=== PATIENT | female | born 1975 | race Caucasian/White ===

== ENCOUNTER 2020-06-13 09:32 | Inpatient (IN) ==
[2020-06-13] MEDS ORDERED: NS 0.9% 1000 ml BAG 2,000 ML IV ONE (09:52)
[2020-06-13 10:19] LABS: ABS Eosinophils 0.1 10^3/ul (0-0.6); ABS Lymphocytes 1.8 10^3/ul (1.0-4.8); ABS Monocytes 0.7 10^3/ul (0-0.8); ABS Neutrophils 9.9 10^3/ul (1.5-7.7); Eosinophil % 1.1 %; Hematocrit 41 % (35-47); Lymphocyte % 14.1 %; Mean Corpuscular HGB Conc 34 g/dL (31-36); Mean Corpuscular Hemoglobin 30 pg (27-31); Mean Corpuscular Volume 87 fL (80-97); Mean Platelet Volume 7.8 fL (7.4-10.4); Platelet Count 375 10^3/uL (150-450); Red Blood Count 4.71 10^6 /uL (3.70-4.87); Red Cell Distribution Width 14 % (10-15); White Blood Count 12.5 10^3/uL (3.5-10.8)
[2020-06-13 10:38] LABS: ALT 15 U/L (7-52); AST 11 U/L (13-39); Albumin 4.7 g/dL (3.2-5.2); Albumin/Globulin Ratio 1.3 (1-3); Alkaline Phosphatase 66 U/L (34-104); Anion Gap 20 mmol/L (2-11); BUN/Creatinine Ratio 23.1 (8-20); Blood Urea Nitrogen 18 mg/dL (6-24); C Reactive Protein 10.49 mg/L (<8.01); CO2 Carbon Dioxide 16 mmol/L (22-32); Calcium 8.8 mg/dL (8.6-10.3); Chloride 97 mmol/L (101-111); Cholesterol 250 mg/dL; EGFR African American 97.1 (>60); EGFR Non-African American 80.2 (>60); Globulin 3.5 g/dL (2-4); Glucose 281 mg/dL (70-100); HDL Cholesterol 43.3 mg/dL; LDL Cholesterol 153 mg/dL; Magnesium 1.9 mg/dL (1.9-2.7); Potassium 3.7 mmol/L (3.5-5.0); Sodium 133 mmol/L (135-145); Total Protein 8.2 g/dL (6.4-8.9); Triglycerides 271 mg/dL
[2020-06-13 10:44] LABS: HCG Pregnancy < 0.60 mIU/mL
[2020-06-13] MEDS ORDERED: Insulin Infusion 100unit/100mL 100 UNIT/100 ML BAG IV ONE (10:45)
[2020-06-13 11:03] LABS: TSH Ultra Thyroid Stim Horm 0.05 mcIU/mL (0.34-5.60)
[2020-06-13 11:05] LABS: Free T4 0.99 ng/dL (0.61-1.12)
[2020-06-13 21:05] LABS: BUN/Creatinine Ratio 25.4 (8-20); Calcium 8.3 mg/dL (8.6-10.3); EGFR African American 124.2 (>60); EGFR Non-African American 102.7 (>60); Potassium 3.8 mmol/L (3.5-5.0)
[2020-06-14 04:34] LABS: Hematocrit 34 % (35-47); Hemoglobin 12.1 g/dL (12.0-16.0); Mean Corpuscular HGB Conc 35 g/dL (31-36); Mean Corpuscular Hemoglobin 31 pg (27-31); Mean Corpuscular Volume 87 fL (80-97); Mean Platelet Volume 7.8 fL (7.4-10.4); Platelet Count 300 10^3/uL (150-450); Red Blood Count 3.92 10^6 /uL (3.70-4.87); Red Cell Distribution Width 14 % (10-15); White Blood Count 10.8 10^3/uL (3.5-10.8)
[2020-06-14 04:51] LABS: Albumin 3.2 g/dL (3.2-5.2); Albumin/Globulin Ratio 1.2 (1-3); BUN/Creatinine Ratio 29.3 (8-20); EGFR African American 136.6 (>60); EGFR Non-African American 112.9 (>60); Globulin 2.6 g/dL (2-4); Potassium 4.3 mmol/L (3.5-5.0); Total Bilirubin 0.4 mg/dL (0.2-1.0); Total Protein 5.8 g/dL (6.4-8.9)
[2020-06-14] MEDS ORDERED: Insulin GLARGINE 100 un/ml 10 ml VIAL SUBCUT ONE (11:02)
[2020-06-14 15:53] VITALS: BP 118/80
[2020-06-26 14:18] LABS: Anti GAD 65 Antibody 4.65 nmol/L (<= 0.02); Islet Antigen 2 Antibody 0.11 nmol/L (<=0.02)
== END 2020-06-14 15:45 | disposition home or self-care (01) | DRG 420 ==
LOC: ED 09:32 → ICU 11:56
PROVIDERS: ADMIT Internal Medicine Critical Care Medicine; ATTEND Internal Medicine Critical Care Medicine

== ENCOUNTER 2022-11-12 21:54 | Inpatient (IN) ==
[2022-11-12] MEDS ORDERED: Droperidol 5 MG/2 ML 2 ML VIAL IV ONE (23:17)
[2022-11-12] MEDS ORDERED: NS 0.9% 1000 ml BAG 2,000 ML IV ONE (23:17)
[2022-11-12 23:59] LABS: ABS Lymphocytes 0.8 10^3/ul (1.0-4.8); ABS Monocytes 0.9 10^3/ul (0-0.8); ABS Neutrophils 16.4 10^3/ul (1.5-7.7); Eosinophil % 0.1 %; Hematocrit 31 % (35-47); Hemoglobin 10.2 g/dL (12.0-16.0); Lymphocyte % 4.3 %; Mean Corpuscular HGB Conc 33 g/dL (31-36); Mean Corpuscular Hemoglobin 28 pg (27-31); Mean Corpuscular Volume 85 fL (80-97); Mean Platelet Volume 6.7 fL (7.4-10.4); Platelet Count 415 10^3/uL (150-450); Red Blood Count 3.65 10^6 /uL (3.70-4.87); Red Cell Distribution Width 17 % (10-15); White Blood Count 18.1 10^3/uL (3.5-10.8)
[2022-11-13 00:32] LABS: ALT 15 U/L (7-52); AST 15 U/L (13-39); Albumin 3.5 g/dL (3.2-5.2); Albumin/Globulin Ratio 1.1 (1-3); Alkaline Phosphatase 77 U/L (35-149); Anion Gap 5 mmol/L (2-11); Blood Urea Nitrogen 11 mg/dL (6-24); C Reactive Protein 186.99 mg/L (<8.01); CO2 Carbon Dioxide 30 mmol/L (22-32); Calcium 8.4 mg/dL (8.6-10.3); Chloride 101 mmol/L (101-111); Creatinine, Serum 0.67 mg/dL (0.51-0.95); Globulin 3.1 g/dL (2-4); Glucose 123 mg/dL (70-100); Lipase < 10 U/L (11.0-82.0); Potassium 3.9 mmol/L (3.5-5.0); Sodium 136 mmol/L (135-145); Total Protein 6.6 g/dL (6.4-8.9); eGFR CKD-EPI 109.1 (>60)
[2022-11-13] MEDS ORDERED: Iodixanol (CONTRAST) 320 MG/ML 100 ML SDV IV ONE (00:36)
[2022-11-13 00:38] LABS: HCG Pregnancy < 0.60 mIU/mL
[2022-11-13 02:02] LABS: Urine Appearance Clear; Urine Bilirubin Negative (Negative); Urine Blood 1+ (Negative); Urine Color Yellow; Urine Glucose 1+(50 mg/dL) (Negative); Urine Ketones 2+ (Negative); Urine Nitrite Negative (Negative); Urine Protein 1+(30 mg/dL) (Negative); Urine Specific Gravity 1.031 (1.002-1.030); Urine Urobilinogen Negative (Negative)
[2022-11-13 02:06] LABS: Urine Bacteria Absent (Absent); Urine Red Blood Cell 1+(3-5/hpf) (Absent); Urine White Blood Cell Absent (Absent)
[2022-11-13] MEDS ORDERED: Piperacillin/Tazobac ADVAN 3.375 GM in NS 0.9% 100 ml BAG 100 ML IV ONE (02:13)
[2022-11-13] MEDS ORDERED: Zosyn per Pharmacy NOTE FOLLOW UP SCH (04:00)
[2022-11-13] MEDS: Lactated Ringers 1000 ml BAG 1,000 ML IV SCH ×2 (04:46→21:20)
[2022-11-13 06:09] LABS: ABS Lymphocytes 1.1 10^3/ul (1.0-4.8); ABS Monocytes 0.9 10^3/ul (0-0.8); ABS Neutrophils 13.1 10^3/ul (1.5-7.7); Eosinophil % 0.2 %; Hematocrit 27 % (35-47); Hemoglobin 9.2 g/dL (12.0-16.0); Mean Corpuscular HGB Conc 34 g/dL (31-36); Mean Corpuscular Hemoglobin 29 pg (27-31); Mean Corpuscular Volume 85 fL (80-97); Mean Platelet Volume 6.8 fL (7.4-10.4); Platelet Count 331 10^3/uL (150-450); Red Blood Count 3.22 10^6 /uL (3.70-4.87); Red Cell Distribution Width 16 % (10-15); White Blood Count 15.1 10^3/uL (3.5-10.8)
[2022-11-13 06:24] LABS: INR 1.33 (0.88-1.18)
[2022-11-13] MEDS: ZOSYN 3.375 GM Q8H per EXTENDED INFUSION IV SCH ×4 (06:58→20:26)
[2022-11-13 07:05] LABS: Calcium 7.2 mg/dL (8.6-10.3); Creatinine, Serum 0.53 mg/dL (0.51-0.95); Magnesium 1.6 mg/dL (1.9-2.7); Potassium 3.6 mmol/L (3.5-5.0); eGFR CKD-EPI 115.4 (>60)
[2022-11-13] MEDS ORDERED: Magnesium Sulfate IV 3 GM in NS 0.9% 100 ml BAG 100 ML IVPB ONE (07:47)
[2022-11-13] MEDS ORDERED: Potassium Chlor 20 meq TAB.ER PO ONE (07:47)
[2022-11-13] MEDS ORDERED: Dextrose 50% Syringe 50 ml 25 GM/50 ML SYRINGE IV PUSH PRN (13:03)
[2022-11-13] MEDS: Ondansetron 4 mg VIAL 2 MG/ML 2 ml VIAL IV PRN (19:53)
[2022-11-14 05:40] LABS: Hematocrit 28 % (35-47); Hemoglobin 9.3 g/dL (12.0-16.0); Mean Corpuscular HGB Conc 33 g/dL (31-36); Mean Corpuscular Hemoglobin 28 pg (27-31); Mean Corpuscular Volume 85 fL (80-97); Platelet Count 375 10^3/uL (150-450); Red Blood Count 3.32 10^6 /uL (3.70-4.87); Red Cell Distribution Width 16 % (10-15)
[2022-11-14] MEDS: ZOSYN 3.375 GM Q8H per EXTENDED INFUSION IV SCH ×3 (06:01→21:49)
[2022-11-14 06:06] LABS: ABS Eosinophils 0.1 10^3/ul (0-0.6); ABS Lymphocytes 1.3 10^3/ul (1.0-4.8); ABS Monocytes 1.3 10^3/ul (0-0.8); ABS Neutrophils 14.3 10^3/ul (1.5-7.7); Eosinophil % 0.8 %; Lymphocyte % 7.4 %
[2022-11-14 06:24] LABS: Calcium 7.7 mg/dL (8.6-10.3); Creatinine, Serum 0.59 mg/dL (0.51-0.95); Magnesium 1.9 mg/dL (1.9-2.7); Potassium 4.1 mmol/L (3.5-5.0); eGFR CKD-EPI 112.5 (>60)
[2022-11-14] MEDS ORDERED: Magnesium Sulfate IV 1GM/100ML 1 GM/100 ML BAG IV ONE (07:02)
[2022-11-14] MEDS: Morphine 2 MG/ML SYRINGE IV PRN (17:53)
[2022-11-15] MEDS: ZOSYN 3.375 GM Q8H per EXTENDED INFUSION IV SCH ×3 (05:49→21:52)
[2022-11-15 07:25] LABS: Hematocrit 28 % (35-47); Hemoglobin 9.1 g/dL (12.0-16.0); Mean Corpuscular HGB Conc 32 g/dL (31-36); Mean Corpuscular Hemoglobin 28 pg (27-31); Mean Corpuscular Volume 87 fL (80-97); Mean Platelet Volume 6.8 fL (7.4-10.4); Platelet Count 371 10^3/uL (150-450); Red Blood Count 3.25 10^6 /uL (3.70-4.87); Red Cell Distribution Width 16 % (10-15); White Blood Count 15.5 10^3/uL (3.5-10.8)
[2022-11-15 07:43] LABS: Calcium 7.6 mg/dL (8.6-10.3); Creatinine, Serum 0.6 mg/dL (0.51-0.95); Magnesium 1.8 mg/dL (1.9-2.7); Potassium 3.6 mmol/L (3.5-5.0)
[2022-11-15 08:14] LABS: C Reactive Protein 241.03 mg/L (<8.01)
[2022-11-15] MEDS: Enoxaparin 40 MG/0.4 ML SYR SUBCUT SCH (12:00)
[2022-11-15] MEDS: NS 0.9% 1000 ml BAG 1,000 ML IV SCH ×2 (12:01→20:11)
[2022-11-15] MEDS: Morphine 2 MG/ML SYRINGE IV PRN ×2 (15:24→21:06)
[2022-11-15] MEDS: Ondansetron 4 mg VIAL 2 MG/ML 2 ml VIAL IV PRN ×2 (15:24→19:42)
[2022-11-15] MEDS ORDERED: Iodixanol (CONTRAST) 320 MG/ML 100 ML SDV IV ONE (17:32)
[2022-11-15] MEDS ORDERED: Gentamicin ADULT per pharmacy 1 NOTE MISC FOLLOW UP PRN (22:30)
[2022-11-15] MEDS ORDERED: GENTAMICIN ADULT IVPB ONE (23:30)
[2022-11-15] MEDS ORDERED: NS 0.9% IVPB ONE (23:30)
[2022-11-15] MEDS: Ampicillin ADVAN 2 GM in NS 0.9% 100 ml BAG 100 ML IVPB SCH (23:31)
[2022-11-16] MEDS: Clindamycin 900 MG/D5W BAG 900 MG/50 ML BAG IVPB SCH ×2 (00:12→08:26)
[2022-11-16] MEDS: Morphine 2 MG/ML SYRINGE IV PRN (01:06)
[2022-11-16] MEDS: Ampicillin ADVAN 2 GM in NS 0.9% 100 ml BAG 100 ML IVPB SCH ×3 (05:00→21:28)
[2022-11-16 06:54] LABS: Hematocrit 26 % (35-47); Hemoglobin 8.9 g/dL (12.0-16.0); Mean Corpuscular HGB Conc 34 g/dL (31-36); Mean Corpuscular Hemoglobin 29 pg (27-31); Mean Corpuscular Volume 85 fL (80-97); Mean Platelet Volume 6.9 fL (7.4-10.4); Platelet Count 378 10^3/uL (150-450); Red Cell Distribution Width 16 % (10-15); White Blood Count 12.4 10^3/uL (3.5-10.8)
[2022-11-16 07:03] LABS: INR 1.29 (0.88-1.18)
[2022-11-16 07:04] LABS: Calcium 7.2 mg/dL (8.6-10.3); Potassium 3.5 mmol/L (3.5-5.0)
[2022-11-16 07:09] LABS: Creatinine, Serum 0.52 mg/dL (0.51-0.95)
[2022-11-16] MEDS ORDERED: Potassium Chlor 20 meq TAB.ER PO ONE (07:28)
[2022-11-16] MEDS ORDERED: NS 0.9% IVPB SCH ×2 (07:30→22:00)
[2022-11-16] MEDS ORDERED: GENTAMICIN ADULT IVPB SCH ×2 (07:30→22:00)
[2022-11-16 08:28] LABS: Magnesium 1.8 mg/dL (1.9-2.7)
[2022-11-16] MEDS: NS 0.9% 1000 ml BAG 1,000 ML IV SCH (08:29)
[2022-11-16 08:44] LABS: ABS Eosinophils 0.4 10^3/ul (0-0.6); ABS Lymphocytes 1.4 10^3/ul (1.0-4.8); ABS Monocytes 0.9 10^3/ul (0-0.8); ABS Neutrophils 9.7 10^3/ul (1.5-7.7); Eosinophil % 2.9 %; RBC Morphology Normal (Normal)
[2022-11-16] MEDS: NS 0.9% IVPB SCH (10:07)
[2022-11-16] MEDS: GENTAMICIN ADULT IVPB SCH (10:07)
[2022-11-16] MEDS: Enoxaparin 40 MG/0.4 ML SYR SUBCUT SCH (12:07)
[2022-11-16] MEDS ORDERED: Acetaminophen IV 1 GM/100ML 1,000 MG/100 ML BAG IV ONE (12:13)
[2022-11-16] MEDS ORDERED: Ondansetron 4 mg VIAL 2 MG/ML 2 ml VIAL ONE (12:13)
[2022-11-16] MEDS ORDERED: HYDROmorphone 0.5 MG/0.5 ML SYRINGE ONE (12:13)
[2022-11-16] MEDS ORDERED: Metoclopramide 5 MG/ML VIAL (10 mg) ONE (12:13)
[2022-11-16] MEDS ORDERED: fentaNYL 250 mcg/5 ml 50 MCG/ML 5 ml VIAL (250 MCG) ONE (12:13)
[2022-11-16] MEDS ORDERED: Rocuronium 50 mg VIAL 10 mg/ml 5 ml VIAL (50 mg) ONE (12:13)
[2022-11-16] MEDS ORDERED: Propofol 10 MG/ML 20 ML BTL ONE (12:13)
[2022-11-16] MEDS ORDERED: Succinylcholine 200 mg VIAL 20 mg/ml 10 ml VIAL (200 mg) ONE (12:14)
[2022-11-16] MEDS ORDERED: HYDROmorphone 1 MG/1 ML SYRINGE IV PRN (13:14)
[2022-11-16] MEDS ORDERED: Prochlorperazine 5 mg/ml 2 ml VIAL (10 mg) IV PRN (13:14)
[2022-11-16] MEDS ORDERED: Naloxone 0.4 mg VIAL 0.4 mg/ml 1 ml VIAL IV PRN (13:14)
[2022-11-16] MEDS ORDERED: Sugammadex 500 MG/5 ML 5 ml VIAL IV PUSH ONE (15:23)
[2022-11-16] MEDS ORDERED: fentaNYL 100 mcg/2 ml 50 MCG/ML VIAL ONE (16:18)
[2022-11-16] MEDS: fentaNYL 100 mcg/2 ml 50 MCG/ML VIAL IV PRN ×2 (16:19→16:36)
[2022-11-16] MEDS ORDERED: Prochlorperazine 5 mg/ml 2 ml VIAL (10 mg) ONE (16:27)
[2022-11-16] MEDS ORDERED: Gentamicin PEAK LEVEL FOLLOW UP ONE (18:00)
[2022-11-16 20:28] LABS: Hematocrit 27 % (35-47); Hemoglobin 8.4 g/dL (12.0-16.0); Mean Corpuscular HGB Conc 31 g/dL (31-36); Mean Corpuscular Hemoglobin 27 pg (27-31); Mean Corpuscular Volume 86 fL (80-97); Mean Platelet Volume 7.1 fL (7.4-10.4); Platelet Count 416 10^3/uL (150-450); Red Blood Count 3.16 10^6 /uL (3.70-4.87); Red Cell Distribution Width 17 % (10-15); White Blood Count 20.4 10^3/uL (3.5-10.8)
[2022-11-16 20:34] LABS: ABS Lymphocytes 0.6 10^3/ul (1.0-4.8); ABS Monocytes 0.9 10^3/ul (0-0.8); ABS Neutrophils 18.8 10^3/ul (1.5-7.7); Eosinophil % 0.1 %; Nucleated Red Blood Cells % 0.1
[2022-11-16] MEDS ORDERED: NS 0.9% 500 ml BAG 500 ML IV ONE (20:41)
[2022-11-16 21:10] LABS: Calcium 7.3 mg/dL (8.6-10.3); Creatinine, Serum 0.57 mg/dL (0.51-0.95); eGFR CKD-EPI 113.4 (>60)
[2022-11-17] MEDS: Clindamycin 900 MG/D5W BAG 900 MG/50 ML BAG IVPB SCH ×4 (01:14→13:46)
[2022-11-17] MEDS: GENTAMICIN ADULT IVPB SCH ×3 (02:46→12:11)
[2022-11-17] MEDS: NS 0.9% IVPB SCH ×3 (02:46→12:11)
[2022-11-17] MEDS: Ampicillin ADVAN 2 GM in NS 0.9% 100 ml BAG 100 ML IVPB SCH ×5 (02:46→20:50)
[2022-11-17 05:57] LABS: Hematocrit 29 % (35-47); Hemoglobin 9.3 g/dL (12.0-16.0); Mean Corpuscular HGB Conc 32 g/dL (31-36); Mean Corpuscular Hemoglobin 28 pg (27-31); Mean Corpuscular Volume 87 fL (80-97); Platelet Count 405 10^3/uL (150-450); Red Blood Count 3.38 10^6 /uL (3.70-4.87); Red Cell Distribution Width 17 % (10-15); White Blood Count 17.1 10^3/uL (3.5-10.8)
[2022-11-17 06:15] LABS: Creatinine, Serum 0.55 mg/dL (0.51-0.95); Magnesium 1.8 mg/dL (1.9-2.7); Potassium 4.1 mmol/L (3.5-5.0); eGFR CKD-EPI 114.4 (>60)
[2022-11-17 06:26] LABS: ABS Lymphocytes 1.2 10^3/ul (1.0-4.8); ABS Monocytes 1.1 10^3/ul (0-0.8); ABS Neutrophils 14.8 10^3/ul (1.5-7.7); Eosinophil % 0.2 %; Lymphocyte % 6.9 %
[2022-11-17] MEDS ORDERED: Magnesium Sulfate 2 gm BAG 2 GM/50 ML BAG IVPB ONE (07:12)
[2022-11-17 07:56] LABS: C Reactive Protein 171.31 mg/L (<8.01)
[2022-11-17 12:03] LABS: Gentamicin Trough 1.5 mcg/mL (0-2.0)
[2022-11-17] MEDS ORDERED: Gentamicin PEAK LEVEL FOLLOW UP ONE ×2 (12:30→20:30)
[2022-11-17 12:52] LABS: Creatinine, Serum 0.59 mg/dL (0.51-0.95); eGFR CKD-EPI 112.5 (>60)
[2022-11-17] MEDS ORDERED: Gentamicin ADULT 80 MG in NS 0.9% 100 ml BAG 100 ML IVPB SCH (21:00)
[2022-11-18] MEDS: Clindamycin 900 MG/D5W BAG 900 MG/50 ML BAG IVPB SCH ×2 (00:12→06:24)
[2022-11-18] MEDS: Ampicillin ADVAN 2 GM in NS 0.9% 100 ml BAG 100 ML IVPB SCH ×2 (02:44→09:14)
[2022-11-18 05:39] LABS: Hematocrit 28 % (35-47); Hemoglobin 9.2 g/dL (12.0-16.0); Mean Corpuscular HGB Conc 33 g/dL (31-36); Mean Corpuscular Hemoglobin 28 pg (27-31); Mean Corpuscular Volume 86 fL (80-97); Mean Platelet Volume 6.8 fL (7.4-10.4); Platelet Count 446 10^3/uL (150-450); Red Blood Count 3.27 10^6 /uL (3.70-4.87); Red Cell Distribution Width 17 % (10-15); White Blood Count 12.9 10^3/uL (3.5-10.8)
[2022-11-18] MEDS ORDERED: Gentamicin ADULT per pharmacy 1 NOTE MISC FOLLOW UP PRN (06:00)
[2022-11-18 06:02] LABS: ABS Eosinophils 0.4 10^3/ul (0-0.6); ABS Lymphocytes 1.4 10^3/ul (1.0-4.8); ABS Neutrophils 9.9 10^3/ul (1.5-7.7); Eosinophil % 3.5 %
[2022-11-18 06:10] LABS: Anion Gap 7 mmol/L (2-11); Blood Urea Nitrogen 5 mg/dL (6-24); C Reactive Protein 157.11 mg/L (<8.01); CO2 Carbon Dioxide 30 mmol/L (22-32); Calcium 7.1 mg/dL (8.6-10.3); Chloride 101 mmol/L (101-111); Creatinine, Serum 0.57 mg/dL (0.51-0.95); Glucose 126 mg/dL (70-100); Potassium 3.8 mmol/L (3.5-5.0); Sodium 138 mmol/L (135-145); eGFR CKD-EPI 113.4 (>60)
[2022-11-18] MEDS: Polyethylene Glycol 3350 17 GM PACKET PO SCH (09:15)
[2022-11-18 09:40] LABS: Creatinine, Serum 0.54 mg/dL (0.51-0.95); eGFR CKD-EPI 114.9 (>60)
[2022-11-18 10:54] LABS: Total Iron Binding Capacity 129 mcg/dL (250-450); Transferrin 92 mg/dL (203-362)
[2022-11-18 11:00] LABS: % Iron Saturation 16 % (15-55); Iron < 20 ug/dL (50-212); Unsaturated Iron Binding 109 ug/dL
[2022-11-18] MEDS ORDERED: fentaNYL 100 mcg/2 ml 50 MCG/ML VIAL IV SLOW PU PRN ×2 (11:43→12:53)
[2022-11-18] MEDS ORDERED: fentaNYL 100 mcg/2 ml 50 MCG/ML VIAL ONE (11:51)
[2022-11-18] MEDS: cefTRIAXone 1 gm/50 mL D5W 1 GM/50 ML BAG IV SCH (12:00)
[2022-11-18] MEDS: DOXYcycline 100 MG in NS 0.9% 250 ml 250 ML IVPB SCH ×2 (12:34→21:05)
[2022-11-18] MEDS: metroNIDAZOLE IV 500 MG/100ML 500 MG/100 ML BAG IVPB SCH ×2 (13:21→22:08)
[2022-11-18] MEDS: Enoxaparin 40 MG/0.4 ML SYR SUBCUT SCH (13:22)
[2022-11-18] MEDS ORDERED: Gentamicin ADULT 80 MG in NS 0.9% 100 ml BAG 100 ML IVPB SCH (14:00)
[2022-11-18] MEDS ORDERED: Gentamicin PEAK LEVEL FOLLOW UP ONE (15:00)
[2022-11-19 05:59] LABS: Hematocrit 26 % (35-47); Hemoglobin 8.6 g/dL (12.0-16.0); Mean Corpuscular HGB Conc 33 g/dL (31-36); Mean Corpuscular Hemoglobin 28 pg (27-31); Mean Corpuscular Volume 86 fL (80-97); Mean Platelet Volume 6.9 fL (7.4-10.4); Platelet Count 473 10^3/uL (150-450); Red Blood Count 3.05 10^6 /uL (3.70-4.87); Red Cell Distribution Width 18 % (10-15); White Blood Count 11.2 10^3/uL (3.5-10.8)
[2022-11-19 06:00] LABS: ABS Eosinophils 0.5 10^3/ul (0-0.6); ABS Lymphocytes 1.5 10^3/ul (1.0-4.8); ABS Monocytes 0.9 10^3/ul (0-0.8); ABS Neutrophils 8.2 10^3/ul (1.5-7.7); Eosinophil % 4.7 %; Lymphocyte % 13.6 %
[2022-11-19] MEDS: cefTRIAXone 1 gm/50 mL D5W 1 GM/50 ML BAG IV SCH (07:57)
[2022-11-19] MEDS: metroNIDAZOLE IV 500 MG/100ML 500 MG/100 ML BAG IVPB SCH (08:56)
[2022-11-19] MEDS: DOXYcycline 100 MG in NS 0.9% 250 ml 250 ML IVPB SCH (09:56)
[2022-11-19] MEDS: Polyethylene Glycol 3350 17 GM PACKET PO SCH (10:21)
[2022-11-19] MEDS: Enoxaparin 40 MG/0.4 ML SYR SUBCUT SCH (12:56)
[2022-11-19] MEDS: Amoxicillin/Clavul 875/125 TAB (Augmentin 875 tab) PO SCH (20:28)
[2022-11-20 06:11] LABS: Hematocrit 28 % (35-47); Hemoglobin 9.2 g/dL (12.0-16.0); Mean Corpuscular HGB Conc 33 g/dL (31-36); Mean Corpuscular Hemoglobin 28 pg (27-31); Mean Corpuscular Volume 86 fL (80-97); Mean Platelet Volume 6.9 fL (7.4-10.4); Platelet Count 628 10^3/uL (150-450); Red Blood Count 3.25 10^6 /uL (3.70-4.87); Red Cell Distribution Width 18 % (10-15); White Blood Count 9.9 10^3/uL (3.5-10.8)
[2022-11-20 07:21] LABS: ABS Eosinophils 0.4 10^3/ul (0-0.6); ABS Lymphocytes 1.6 10^3/ul (1.0-4.8); ABS Monocytes 0.9 10^3/ul (0-0.8); ABS Neutrophils 6.9 10^3/ul (1.5-7.7); Eosinophil % 4.1 %; Lymphocyte % 16.5 %; Nucleated Red Blood Cells % 0.1
[2022-11-20 07:27] LABS: RBC Morphology Normal (Normal)
[2022-11-20] MEDS: Amoxicillin/Clavul 875/125 TAB (Augmentin 875 tab) PO SCH (09:26)
[2022-11-20] MEDS: Polyethylene Glycol 3350 17 GM PACKET PO SCH (11:08)
[2022-11-20 11:32] VITALS: BP 118/72
== END 2022-11-20 12:11 | disposition home or self-care (01) | DRG 710 ==
LOC: EDHOLD 21:54 → ED 21:54 → SUATTDRO 11-13 03:15 → OBSVTOIN 11-13 03:15 → MED 11-13 18:23 → SSU 11-16 18:44
PROVIDERS: ADMIT Internal Medicine; ATTEND Internal Medicine